=== PATIENT | female | born 1990 | race Two or more races ===

== ENCOUNTER 2025-04-03 13:57 | Inpatient (IN) | payer OTHER ==
[~2025-04-03] VITALS: Ht 165.1 cm; Wt 75.3 kg
[2025-04-03] MEDS ORDERED: PRENATABS RX T1 EACH PO (14:02)
[2025-04-03] MEDS ORDERED: AMPICILLIN SODIUM 2,000 MG VIAL IV ONE (14:15)
[2025-04-03] MEDS ORDERED: RINGERS SOLUTION,LACTATED 1,000 ML IV SCH (14:15)
[2025-04-03 14:18] VITALS: BP 132/62
[2025-04-03 14:53] LABS: URINE APPEARANCE Clear; URINE BILIRRUBIN Negative (NEGATIVE); URINE BLOOD Negative; URINE COLOR Yellow; URINE GLUCOSE Negative (NEGATIVE); URINE KETONE Negative (NEGATIVE); URINE LEUKOCYTE Negative; URINE NITRATE Negative; URINE PROTEIN Negative (NEGATIVE); URINE UROBILINOGEN 0.2 E.U./dl
[2025-04-03 14:56] LABS: URINE BACTERIA 203.9 uL (0.0-1933); URINE EPITHELIAL CELLS 17.6 uL (0.0-38.8); URINE RBC 25.0 uL (0.0-20.8); URINE WBC 2.7 uL (0.0-23.2)
[2025-04-03 14:58] LABS: URINE CAST 0.87 uL (0.0-1.40)
[2025-04-03 15:03] LABS: BASO % 0.3 % (0.1-1.2); EOS # 0.12 (0.04-0.54); EOS % 1.5 % (0.7-7.0); LYMPH # 1.32 (1.18-3.74); LYMPH % 17.0 % (19.3-53.1); MEAN PLATELET VOLUME 11.70 fl (9.4-12.4); MONO # 0.62 (0.24-0.82); MONO % 8.0 % (4.7-12.5); NEUT # 5.67 (1.56-6.13); NEUT % 72.8 % (34.0-71.1); RED CELL DISTRIBUTION WIDTH 12.6 % (11.6-14.4)
[2025-04-03 15:26] LABS: INR < 0.93
[2025-04-03 15:30] LABS: ALT/SGPT 21.0 U/L (12-78); AST/SGOT 18.0 U/L (15-37); BILIRUBIN TOTAL 0.26 mg/dL (0.3-1.2); BUN CREA RATIO 26.0 (7.0-25.0); CREATININE SERUM 0.35 mg/dL (0.55-1.02); GFR 214.45; GLOBULINA 2.9 G/DL (2.4-3.5); GLUCOSE FASTING 113.0 mg/dL (65-100); OSMOLALITY SERUM 283.0 MOSM/KG (275-295)
[2025-04-03 15:32] VITALS: BP 109/65
[2025-04-03] MEDS ORDERED: AMPICILLIN SODIUM 1,000 MG VIAL IV SCH (17:00)
[2025-04-03 20:49] VITALS: BP 117/67
[2025-04-03 23:18] VITALS: BP 117/73
[2025-04-04] VITALS (9 sets, daily range): BP systolic 95–130; BP diastolic 56–86
[2025-04-04] MEDS ORDERED: OXYTOCIN 500 ML IV SCH (09:45)
[2025-04-04] MEDS ORDERED: OXYTOCIN 20 UNITS/1000ML RL PIGGYBAG IV ONE (14:04)
[2025-04-04] MEDS ORDERED: LIDOCAINE HCL 1% 10ML VIAL ONE (14:04)
[2025-04-04] MEDS ORDERED: ERYTHROMYCIN BASE OPHT 1GM EACH TUBE OP ONE (14:04)
[2025-04-04] MEDS ORDERED: CHLORHEXIDINE GLUCONATE 120 ML BOTTLE TOP ONE (14:04)
[2025-04-04] MEDS ORDERED: METHYLERGONOVINE MALEATE 0.2 MG/ML AMPUL ONE (15:33)
[2025-04-04] MEDS ORDERED: ACETAMINOPHEN 500 MG GEL..CAP PO PRN (15:45)
[2025-04-04] MEDS ORDERED: OXYTOCIN 1,000 ML IV SCH (15:45)
[2025-04-04] MEDS ORDERED: CHLORHEXIDINE GLUCONATE 120 ML BOTTLE TP SCH (15:45)
[2025-04-04] MEDS ORDERED: METHYLERGONOVINE MALEATE 0.2 MG/ML AMPUL IM STA (15:45)
[2025-04-04 18:54] LABS: BASO % 0.1 % (0.1-1.2); EOS # 0.00 (0.04-0.54); EOS % 0.0 % (0.7-7.0); LYMPH # 0.78 (1.18-3.74); LYMPH % 5.2 % (19.3-53.1); MEAN PLATELET VOLUME 11.90 fl (9.4-12.4); MONO # 0.87 (0.24-0.82); MONO % 5.8 % (4.7-12.5); NEUT # 13.19 (1.56-6.13); NEUT % 88.5 % (34.0-71.1); RED CELL DISTRIBUTION WIDTH 12.7 % (11.6-14.4)
[2025-04-04] MEDS ORDERED: FF) RHO(D) IMMUNE GLOBULIN (POM) IM ONE (23:00)
[2025-04-05 00:42] VITALS: BP 123/73
[2025-04-05 08:00] VITALS: BP 104/68
[2025-04-05] MEDS ORDERED: PNV,CALCIUM 72/IRON/FOLIC ACID 1 TAB TABLET PO SCH (09:00)
[2025-04-05 16:40] VITALS: BP 108/69
[2025-04-06 00:21] VITALS: BP 99/60
[2025-04-06 08:00] VITALS: BP 116/70
[2025-04-06 20:15] VITALS: BP 115/69
[2025-04-07] VITALS: BP 114/69
[2025-04-07 09:12] VITALS: BP 106/66
== END 2025-04-07 18:10 | disposition home or self-care (01) | DRG 807 ==
LOC: EDBD 13:57 → OB/GYN 13:57 → LDR 13:57 → OB/GYN 04-04 15:49
PROVIDERS: Specialist; ADMIT Obstetrics & Gynecology; ATTEND Obstetrics & Gynecology
PROC: 4A1HXCZ Monitoring of Products of Conception, Cardiac Rate, External Approach (ICD-10-PCS; 2025-04-03)
PROC: 10E0XZZ Delivery of Products of Conception, External Approach (ICD-10-PCS; principal; 2025-04-04)
PROC: 0W8NXZZ Division of Female Perineum, External Approach (ICD-10-PCS; 2025-04-04)
DX: O42.02 Full-term premature rupture of membranes, onset of labor within 24 hours of rupture (principal); Z37.0 Single live birth; Z3A.37 37 weeks gestation of pregnancy